=== PATIENT | male | born 1935 | race Caucasian/White ===

== ENCOUNTER → 2021-03-17 | Outpatient (CLI) | payer MEDICARE, BC ==
[~2021-03-17] MED LIST: NORCO 7.5-3251 EACH PO
== END ==
LOC: KOH-I 08:56
DX: G95.19 Other vascular myelopathies (principal); M43.17 Spondylolisthesis, lumbosacral region; M43.26 Fusion of spine, lumbar region
CPT/HCPCS: 72148